=== PATIENT | male | born 1995 | race Caucasian/White ===

== ENCOUNTER 2021-04-03 13:23 | Emergency (ER) | payer OTHER ==
[~2021-04-03] VITALS: Ht 167.6 cm; Wt 89.8 kg
--- NOTE | 2021-04-03 14:02 | REP ---
INDICATION: injury, nail through middle finger COMPARISON: None. TECHNIQUE: Five views right 3rd digit. FINDINGS: A linear metallic structure is seen within the distal aspect of the digit, approximate length 21 mm, width 1 mm. This extends into the base of the distal phalanx and the tip is in the distal interphalangeal joint. IMPRESSION: Linear metallic structure in the distal aspect of the digit, within the base of the distal phalanx. <Electronically signed by Mick Mckoy > 04/03/21 [id number]
[2021-04-03] MEDS ORDERED: LIDOCAINE 2% MDV 20ML VIAL SC ONE (17:55)
[2021-04-03] MEDS ORDERED: CEPH500C PO (18:06)
[2021-04-03 18:16] VITALS: BP 162/99
== END 2021-04-03 18:28 | disposition home or self-care (01) ==
LOC: M ED 13:23
DX: S61.242A Puncture wound with foreign body of right middle finger without damage to nail, initial encounter (principal); W29.4XXA Contact with nail gun, initial encounter; Y92.009 Unspecified place in unspecified non-institutional (private) residence as the place of occurrence of the external cause; Y93.89 Activity, other specified; Y99.9 Unspecified external cause status

== ENCOUNTER 2024-02-13 17:08 | Emergency (ER) | payer OTHER ==
[~2024-02-13] VITALS: Ht 170.2 cm; Wt 89.3 kg
[~2024-02-13 17:08] MED LIST: CEPH500C PO
[2024-02-13 17:09] VITALS: TEMP 97.5
[2024-02-13 22:19] LABS: BASO % 0.4 % (0.0-1.0); EOS # 0.1 10^3/uL (0.0-0.5); EOS % 1.4 % (0.0-3.0); HEMATOCRIT 50.1 % (42.0-52.0); HEMOGLOBIN 16.8 g/dl (13.5-17.5); LYMPH # 2.8 10^3/uL (1.5-5.0); LYMPH % 40.4 % (24.0-44.0); MEAN CORPUSCULAR HEMOGLOBIN 28.9 pg (27.0-33.0); MEAN CORPUSCULAR HGB CONC 33.5 g/dl (32.0-36.5); MEAN CORPUSCULAR VOLUME 86.2 fl (80.0-96.0); MONO # 0.7 10^3/uL (0.0-0.8); MONO % 10.1 % (2.0-8.0); NEUTROPHILS # 3.3 10^3/uL (1.5-8.5); NEUTROPHILS % 47.4 % (36.0-66.0); PLATELET COUNT, AUTOMATED 255 10^3/uL (150-450); RED BLOOD COUNT 5.81 10^6/uL (4.30-6.10)
[2024-02-13 22:30] VITALS: BP 150/90; O2SAT 97
[2024-02-13 22:40] LABS: C REACTIVE PROTEIN QUANTITATIV < 0.40 MG/DL (<1.0)
[2024-02-13 22:41] LABS: BLOOD UREA NITROGEN 19 MG/DL (9-23); CALCIUM LEVEL 9.3 MG/DL (8.5-10.1); CARBON DIOXIDE LEVEL 32 MMOL/L (20-31); CHLORIDE LEVEL 104 MMOL/L (98-107); CREATININE FOR GFR 1.05 MG/DL (0.70-1.30); GLOMERULAR FILTRATION RATE > 60.0 (>60); GLUCOSE, FASTING 90 MG/DL (60-100); POTASSIUM SERUM 4.1 MMOL/L (3.5-5.1); SODIUM LEVEL 137 MMOL/L (136-145)
[2024-02-13] MEDS ORDERED: PROHANCE 279.3MG/ML 5ML VIAL As Ordered ONE (22:50)
[2024-02-13] MEDS ORDERED: PROHANCE 279.3MG/ML 15ML VIAL As Ordered ONE (22:51)
[2024-02-14] MEDS ORDERED: HYDR-3713 PO (01:26)
[2024-02-14] MEDS: NORCO 5/325MG TABLET (HOME DOSE PACK) PO ONE (01:44)
== END 2024-02-14 01:47 | disposition home or self-care (01) ==
LOC: M ED 17:08
DX: M54.2 Cervicalgia (principal); F43.10 Post-traumatic stress disorder, unspecified; Z87.820 Personal history of traumatic brain injury; Z79.1 Long term (current) use of non-steroidal anti-inflammatories (NSAID); Z79.899 Other long term (current) drug therapy
CPT/HCPCS: 36415; 72156; 80048; 85025; 86140; 99284; A9576